=== PATIENT | female | born 1945 | race Caucasian/White ===

== ENCOUNTER 2016-06-27 15:13 | Emergency (ER) | payer OTHER, MEDICARE ==
[2016-06-27 15:19] VITALS: BP 154/90; PULSE 80; TEMP 98; BMI 21.8
[2016-06-27] MEDS ORDERED: DIPHTH,PERTUSS(ACELL),TET 0.5 ML DISP.SYRIN IM ONE (17:29)
--- NOTE | 2016-06-27 17:35 | PDOC ---
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 Patient reports that she went to pet the dog and the dog bit her right palm proximal to her right thumb but let go immediately. Patient has 3 superficial puncture wounds with surrounding edema. Patient is here with a dog manager financial reporting who reports that dog is up to date with rabies vaccine. Patient has full range of motion of motion of all digits on right hand and wrist. Patient denies any numbness of her right hand or digits. Patient does not want anything for pain presently. Patient reports that she knows the dog and dog has never bit anyone in the past. Patient is unsure whether or not she is up-to-date with her tetanus will up-to-date today. Occurred: reports: just prior to arrival Severity: reports: moderate (right palm dog bite 3 tiny open areas) Pain Location: reports: upper extremity (rt. palm proximal to thumb 3 tiny open areas) Method of Injury: Yes: other (dog bite) Modifying Factors: improves with: None Past History - Past Medical History Allergies/Adverse Reactions: Allergies Allergy/AdvReac Type Severity Reaction Status Date / Time macadamia nut oil Allergy Difficulty Verified 06/27/16 15:19 Breathing MUSCLES Allergy Vomiting Uncoded 06/27/16 15:18 Home Medications: Ambulatory Orders Amoxicillin/Potassium Clav [Augmentin 875-125 Tablet] 1 each PO BID #14 tablet 06/27/16 Levothyroxine Sodium [Synthroid] 88 mcg PO DAILY 06/27/16 Omeprazole 20 mg PO DAILY 06/27/16 Asthma: Yes - Psycho/Social/Smoking Cessation Hx Anxiety: No Suicidal Ideation: No Smoking History: Never smoked Hx Alcohol Use: Yes (SOCIAL) Drug/Substance Use Hx: No Substance Use Type: None Review of Systems - Review of Systems Able to Perform ROS?: Yes Constitutional: No: Symptoms Reported HEENTM: No: Symptoms Reported Respiratory: No: Symptoms reported Cardiac (ROS): No: Symptoms Reported ABD/GI: No: Symptoms Reported : No: Symptoms Reported Musculoskeletal: No: Symptoms Reported Integumentary: Yes: Other (rt. palm proximal to thumb 3 tiny open areas dog bite) Neurological: No: Symptoms reported *Physical Exam - Vital Signs Last Vital Signs Temp Pulse Resp BP Pulse Ox 98.0 F 80 20 154/90 97 06/27/16 15:16 06/27/16 15:16 06/27/16 15:16 06/27/16 15:16 06/27/16 15:16 - Physical Exam General Appearance: Yes: Appropriately Dressed Comments:: 06/27/16 17:32 right radial pulse 4 + Extremity: positive: Normal Capillary Refill, Normal Range of Motion (rt.hand all digits full range of motion, rt. wrist FROM ), Swelling (noted around 3 superfical puncture wounds rt. palm ) Integumentary: positive: Other (3 superficial puncture wounds rt.palmar hand proximal to thumb ) Neurologic: positive: Alert, Normal Response, Responsive. negative: Numbness, Sensory Deficit (rt. 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 Patient reports that she went to pet the dog and the dog bit her right palm proximal to her right thumb but let go immediately. Patient has 3 superficial puncture wounds with surrounding edema. Patient is here with a dog manager financial reporting who reports that dog is up to date with rabies vaccine. Patient has full range of motion of motion of all digits on right hand and wrist. Patient denies any numbness of her right hand or digits. Patient does not want anything for pain presently. Patient reports that she knows the dog and dog has never bit anyone in the past. Patient is unsure whether or not she is up-to-date with her tetanus will up-to-date today. Bite right hand palm Dog is up to date with rabies vaccine PLAN: washed well with chlorhexidine and warm water then cleansed with Betadine and copious amounts of normal saline 0.9% dried and then Telfa applied with Ann T dap 0.5 mL IM now Augmentin 875/125 mg twice a day 7 days will treat normal than usual due to being wound of hand Will have patient return if any fever or redness around bites increased swelling or any red streaking from bites areas HERVE form completed 06/27/16 17:47 06/27/16 17:51 *DC/Admit/Observation/Transfer Diagnosis at time of Disposition: Dog bite of right palm Qualifiers: Encounter type: initial encounter Qualified Code(s): S61.451A - Open bite of right hand, initial encounter; W54.0XXA - Bitten by dog, initial encounter - Discharge Dispostion Disposition: HOME Condition at time of disposition: Stable - Patient Instructions Additional Instructions: Cleansed wound on right hand with antibacterial soap and water twice daily pat dry do not apply any bacitracin or Neosporin ointments or any creams to area cover with dressing when out of the home let air out at night when sleeping Follow up with your primary care provider within the next 2 days Return to emergency room if any fever, increased warmth of right palm or fingers or increased swelling or increased redness around wound or streaking of redness from bites May take ibuprofen or acetaminophen as needed as directed by pomology teacher for pain Patient voiced understanding of discharge instructions and all questions were answered
== END 2016-06-27 17:53 | disposition home or self-care (01) ==
LOC: JERFT 15:13
PROC: 3E0234Z Introduction of Serum, Toxoid and Vaccine into Muscle, Percutaneous Approach (ICD-10-PCS; principal; 2016-06-27)
DX: S61.451A Open bite of right hand, initial encounter (principal); W54.0XXA Bitten by dog, initial encounter; Y93.89 Activity, other specified; Y92.410 Unspecified street and highway as the place of occurrence of the external cause; Y99.0 Civilian activity done for income or pay; E03.9 Hypothyroidism, unspecified; K21.9 Gastro-esophageal reflux disease without esophagitis
CPT/HCPCS: 90471; 90715; 99281-25